=== PATIENT | male | born 1980 | race Caucasian/White ===

== ENCOUNTER 2020-06-30 20:02 | Emergency (ER) | payer OTHER ==
[~2020-06-30] VITALS: Ht 182.9 cm; Wt 84.1 kg
[2020-06-30] MEDS ORDERED: PANT-31 PO (20:08)
[2020-06-30] MEDS ORDERED: ACETAMINOPHEN 325 MG TABLET PO ONE (21:30)
[2020-06-30 21:39] LABS: COVID AG,FIA SOURCE NASOPHARYNGEAL
[2020-06-30 23:55] LABS: INFLUENZA TYPE A NEGATIVE FOR TYPE A (NEGATIVE); INFLUENZA TYPE B NEGATIVE FOR TYPE B (NEGATIVE)
[2020-06-30 23:56] LABS: RAPID GROUP A STREP NEGATIVE (NEGATIVE)
[2020-07-01 00:04] VITALS: BP 132/81
== END 2020-07-01 00:10 | disposition home or self-care (01) ==
LOC: EMS 20:05
DX: B34.9 Viral infection, unspecified (principal); J02.9 Acute pharyngitis, unspecified; M79.10 Myalgia, unspecified site; K21.9 Gastro-esophageal reflux disease without esophagitis; Z20.828 Contact with and (suspected) exposure to other viral communicable diseases; Z91.011 Allergy to milk products
CPT/HCPCS: 87426; 87430; 87804; 99283; U0003

== ENCOUNTER 2022-01-18 09:55 | Emergency (ER) | payer OTHER ==
[~2022-01-18] VITALS: Ht 182.9 cm; Wt 86.4 kg
[~2022-01-18 09:55] MED LIST: PANT-31 PO
[2022-01-18 10:07] VITALS: BP 129/78
[2022-01-18] MEDS ORDERED: ACETAMINOPHEN 325 MG TABLET PO ONE (10:15)
== END 2022-01-18 11:06 | disposition home or self-care (01) ==
LOC: EMS 09:57
DX: S63.91XA Sprain of unspecified part of right wrist and hand, initial encounter (principal); K21.9 Gastro-esophageal reflux disease without esophagitis; Z91.011 Allergy to milk products; W22.8XXA Striking against or struck by other objects, initial encounter; Y93.89 Activity, other specified; Y92.89 Other specified places as the place of occurrence of the external cause; Y99.8 Other external cause status
CPT/HCPCS: 99283